=== PATIENT | female | born 1940 | race Caucasian/White ===

== ENCOUNTER 2016-07-20 22:00 | Emergency (ER) | payer MEDICARE, BC ==
[~2016-07-20 22:00] MED LIST: ACET500CAP PO; ALLEGRA OTC PO; ALLEGRA180 PO; ANASPAZ0.125 MG PO; B121000P IM/SC; BENICAR HCT1 TAB PO; CALTRA600D PO; CYANO1000T PO; FEMHRT PO; FIBER-TABS625 MG PO; HYOMAX-SL0.125 MG PO; HYZAAR1 TAB PO; KDUR20 PO; KLOR-CON M2020 MEQ PO; LEVAQUIN750 MG PO; LIPITOR10 PO; LIPITOR20 PO; LORT7 PO; MAGOX4 PO; MCZ25 PO; PR25 PO; PRILOSEC40 MG PO; SODBICAR10 PO; TAMOXIFEN20 M1 PO; TOPXL25 PO; TOPXL50 PO; ULTRACET PO; VITAMIN B 12 PO; VITAMIN B COMP1 EAC1 PO; VITAMIN B-121000 MC1 PO; VITAMIN D31000 UNIT PO; ZOFRAN4 PO; ZOFRAN8 PO; ZYRTEC ALLGY10 MG PO; [UNRECOGNIZED DRUG - CODE] PO; [UNRECOGNIZED DRUG - OTHER] PO
[2016-07-20 22:19] LABS: BASOPHILS 0.1 %; BASOPHILS ABSOLUTE 0.01 10/3/uL (0.0-0.16); EOSINOPHILS 0.7 %; EOSINOPHILS ABSOLUTE 0.05 10/3/uL (0.0-0.53); ER CBC TAT 0 Hrs 05 Mins; HEMATOCRIT 36.9 % (36.0-48.0); HEMOGLOBIN 12.6 g/dL (12.0-16.0); IMMATURE GRANULOCYTES 0.1 %; IMMATURE GRANULOCYTES ABSOLUTE 0.01 10/3/uL (0.0-0.11); LYMPHOCYTES 44.8 %; LYMPHOCYTES ABSOLUTE 3.03 10/3/uL (0.67-4.30); MEAN CORPUS HGB CONC 34.1 g/dL (32.0-36.0); MEAN CORPUSCULAR HEMOGLOB 30.4 pg (26.0-34.0); MEAN CORPUSCULAR VOLUME 89.1 fL (80-100); MEAN PLATELET VOLUME 9.3 fL (9.2-13.0); MONOCYTES 7.8 %; MONOCYTES ABSOLUTE 0.53 10/3/uL (0.21-1.20); NEUTROPHILS 46.5 %; NEUTROPHILS ABSOLUTE 3.14 10/3/uL (2.02-8.40); RBC DISTRIBUTION WIDTH 13.9 % (12.0-16.0); RED CELL COUNT 4.14 10/6/uL (4.0-5.6); WHITE BLOOD CELLS 6.8 10/3/uL (4.5-10.5)
[2016-07-20 22:24] LABS: PLATELET COUNT 184 10/3/uL (150-400)
[2016-07-20 22:29] LABS: MANUAL DIFF NO %
[2016-07-20 22:32] LABS: PARTIAL THROMBO TIME 25.6 SEC (22.5-37.2); PROTIME (NOT ORD) 13.4 SEC (12.0-14.5)
[2016-07-20 22:36] LABS: BUN (BLOOD UREA NITROGEN) 18 MG/DL (6-23); CALCIUM, SERUM 8.5 MG/DL (8.5-10.4); CHEST PAIN PROFILE TAT 0 Hrs 22 Mins; CHLORIDE, SERUM 106 MMOL/L (96-112); CO2 (CARBON DIOXIDE) 29 MMOL/L (24-34); CREATININE 0.83 MG/DL (0.55-1.02); GFR AFRICAN AMERICAN 80 ML/MIN (>=60); GFR NON AFRICAN AMERICAN 69 ML/MIN (>=60); GLUCOSE, SERUM 90 MG/DL (60-99); POTASSIUM, SERUM 3.6 MMOL/L (3.5-5.3); SODIUM, SERUM 143 MMOL/L (135-148); TROPONIN I <0.02 NG/ML (<0.05)
== END 2016-07-20 23:35 | disposition home or self-care (01) ==
LOC: ER 22:00
PROVIDERS: Emergency Medicine
DX: I16.0 Hypertensive urgency (principal); I12.9 Hypertensive chronic kidney disease with stage 1 through stage 4 chronic kidney disease, or unspecified chronic kidney disease; N18.9 Chronic kidney disease, unspecified; Z85.79 Personal history of other malignant neoplasms of lymphoid, hematopoietic and related tissues; Z88.8 Allergy status to other drugs, medicaments and biological substances; Z79.899 Other long term (current) drug therapy
CPT/HCPCS: 80048; 83735; 84484; 85025; 85610; 85730; 93005; 99284; A9270-GY